=== PATIENT | female | born 1990 | race Caucasian/White ===

== ENCOUNTER 2022-11-07 21:02 | Emergency (ER) | payer MEDICARE, SELFPAY ==
[2022-11-07 21:08] VITALS: BP 141/97; PULSE 109; RESP 18; TEMP 36.6; O2SAT 98; BMI 32.5
--- NOTE | 2022-11-07 21:33 | ED_ITS ---
HPI - General Adult General Chief complaint: Chest Pain Stated complaint: Chest pain since this morning Time Seen by Provider: 11/07/22 21:16 Source: patient Mode of arrival: ambulatory Limitations: no limitations History of Present Illness HPI narrative: 32-year-old female coming in today complaining of chest pain that started when she woke up this morning. Pain is located in the right upper chest and does not radiate. Sitting still makes it better. Moving or taking deep breaths makes it worse. [place] 5 [address] ride and drove back yesterday. She is on oral control. She feels short of breath with activity. She denies nausea, vomiting or diaphoresis. She is not dizzy or lightheaded. She has been drinking alcohol this past week. Her past medical history is significant for idiopathic hypersomnolence, bipolar disorder, ADHD, acne. She is on armodafinil, Vraylar, Adderall, Xywav, Accutane, and spironolactone. She is sexually active but takes monthly test secondary to Accutane. Denies any recent surgeries. Related Data Home Medications Medication Instructions Recorded Confirmed armodafinil 250 mg tablet 250 mg PO QAM 11/07/22 11/07/22 cariprazine 6 mg capsule (Vraylar) 6 mg PO DAILY 11/07/22 11/07/22 dextroamphetamine-amphetamine 10 10 mg PO QID 11/07/22 11/07/22 mg tablet (Adderall) dextroamphetamine-amphetamine ER 30 mg PO DAILY 11/07/22 11/07/22 30 mg 24hr capsule,extend release (Adderall XR) sodium, calcium, magnesium, 4.5 g PO HS 11/07/22 11/07/22 potassium oxybates 0.5 gram/mL oral soln (Xywav) spironolactone 100 mg tablet 100 mg PO DAILY 11/07/22 11/07/22 Allergies Allergy/AdvReac Type Severity Reaction Status Date / Time amoxicillin AdvReac Verified 11/07/22 21:13 minocycline AdvReac Verified 11/07/22 21:13 Sulfa (Sulfonamide AdvReac Verified 11/07/22 21:13 Antibiotics) sulfamethoxazole AdvReac Verified 11/07/22 21:13 [From Bactrim] tramadol AdvReac Verified 11/07/22 21:13 trimethoprim [From Bactrim] AdvReac Verified 11/07/22 21:13 Review of Systems Status of ROS: Reports: 10 or more systems reviewed and unremarkable except as noted in History and below [facility] Medical History (Updated 11/07/22 @ 22:45 by Mariel Arenas MD) Bipolar disorder ?F31.9 - Bipolar disorder, unspecified (ICD-10) Idiopathic insomnia ?F51.01 - Primary insomnia (ICD-10) Acne ?L70.9 - Acne, unspecified (ICD-10) Social History Do you use any of these nicotine containing products: Vaping Products How often do you have a drink containing alcohol: never AUDIT-C Alcohol total score: 0 Non-prescribed substance use: denies use Exam Narrative: Exam Narrative: Overweight, well-developed patient in no acute distress. Alert and oriented. Answers questions appropriately. Mood and affect are appropriate. Thoughts are goal oriented and rational. No tangential or magical thinking noted. Patient speaks in full sentences without needing to catch her breath. Has scattered acne throughout the body. Has multiple tattoos. HEENT: Normocephalic atraumatic. Pupils are equally round reactive to light. Extraocular muscles are intact. Conjunctivae are moist without any icterus noted. Moist mucous membranes. Posterior pharynx is normal. Neck is soft without any lymphadenopathy or thyromegaly. No masses are appreciated. Cardiovascular: Heart is regular rate and rhythm S1 and S2 are present without any murmurs. Lungs: Clear to auscultation bilaterally no wheezes rhonchi or rales are appreciated. Patient takes deep breaths without any discomfort. I cannot reproduce her chest pain with palpation. Abdomen: Soft and nontender nondistended with normal bowel sounds. Extremities: Bilateral lower extremities are without edema. Skin: Well perfused without any obvious rashes. Const: Vital Signs, click to edit/add: Vital Signs - 24 hr 11/07/22 21:08 11/07/22 21:41 11/07/22 22:01 Temperature 97.9 F Pulse Rate 88 Pulse Rate [Left P ulse Oximeter] 109 H Respiratory Rate 18 16 Blood Pressure 132/86 Blood Pressure [Ri ght Upper Arm] 141/97 H Pulse Oximetry 98 98 98 Oxygen Delivery Me thod Room Air 11/07/22 22:21 Temperature Pulse Rate 87 Pulse Rate [Left P ulse Oximeter] Respiratory Rate 16 Blood Pressure 131/90 H Blood Pressure [Ri ght Upper Arm] Pulse Oximetry 98 Oxygen Delivery Me thod Course Course Hospital Course: EKG, read by me, shows normal sinus rhythm with a pulse of 100. Given that the patient was tachycardic an IV was established and fluids were started. After receiving a L of normal saline patient's pulse did come down into the 80s. Her lab work was entirely unremarkable including a negative troponin and D- dimer. Chest x-ray, read by me, does not show any acute pathology. Vital Signs Vital signs: Initial Vital Signs Temperature 97.9 F 11/07/22 21:08 Temperature Source Temporal Artery Scan 11/07/22 21:08 Pulse Rate 109 H 11/07/22 21:08 Respiratory Rate 18 11/07/22 21:08 Blood Pressure 141/97 H 11/07/22 21:08 Blood Pressure Mean 111 H 11/07/22 21:08 Blood Pressure Position Sitting 11/07/22 21:08 Pulse Oximetry 98 11/07/22 21:08 Oxygen Delivery Method Room Air 11/07/22 21:08 Vital Signs Temperature 97.9 F 11/07/22 21:08 Pulse Rate 109 H 11/07/22 21:08 Respiratory Rate 18 11/07/22 21:08 Blood Pressure 141/97 H 11/07/22 21:08 Pulse Oximetry 98 11/07/22 21:08 Oxygen Delivery Method Room Air 11/07/22 21:08 Temperature 97.9 F 11/07/22 21:08 Pulse Rate 87 11/07/22 22:21 Respiratory Rate 16 11/07/22 22:21 Blood Pressure 131/90 H 11/07/22 22:21 Pulse Oximetry 98 11/07/22 22:21 Oxygen Delivery Method Room Air 11/07/22 21:08 Medical Decision Making MDM Narrative Medical decision making narrative: 32-year-old female with atypical chest pain of unclear etiology. Differential diagnoses includes PE, pneumothorax, pneumonia you, chest wall pain, musculoskeletal discomfort, and less likely, cardiovascular disease. While these differential diagnoses were considered, no evidence was found to support any of them. At this time I recommend symptomatic management with over -the-counter NSAIDs or Tylenol. Follow up with primary care as needed or return to the ER if symptoms are getting worse. Patient was in agreement with everything we discussed and had no other questions. Lab Data Lab results reviewed: Yes I reviewed the patient's lab results Labs: Lab Results 11/07/22 11/07/22 11/07/22 Range/Units 21:30 21:35 21:38 WBC 10.89 (4.50-11.00) K/uL RBC 4.58 (4.00-5.20) m/uL Hgb 13.7 (12.0-16.0) gm/dL Hct 42.5 (33.0-51.0) % MCV 93 (80-100) fL MCH 30 (26-34) pg MCHC 32 (32-36) gm/dL RDW Coeff of Kimberlee 13.3 (11.5-15.5) % Plt Count 377 (140-440) K/uL Neut % (Auto) 54.5 (42.0-72.0) % Lymph % (Auto) 35.3 (20-44) % Clay % (Auto) 8.5 (0.0-11.0) % Eos % (Auto) 1.1 (0.0-7.0) % Baso % (Auto) 0.4 (0.0-3.0) % Neut # (Auto) 5.94 (1.7-7.0) K/uL Lymph # (Auto) 3.84 H (0.90-2.90) K/uL Clay # (Auto) 0.90 (0.00-0.90) K/UL Eos # (Auto) 0.12 (0.00-0.50) K/uL Baso # (Auto) 0.04 (0.00-0.30) K/uL Abs Immat Gran (auto) 0.02 (0.00-0.30) K/uL Imm/Tot Granulo (auto) 0.2 % ESR 3 (2-20) mm/hr D-Dimer Quant (PE/DVT) < 0.27 (0.00-0.50) ug/ml Sodium 136 (135-149) mmol/L Potassium 3.7 (3.6-5.1) mmol/L Chloride 100 (96-114) mmol/L Carbon Dioxide 29 (20-32) mmol/L BUN 12 (5-24) mg/dL Creatinine 0.8 (0.5-1.5) mg/dL Estimated Creat Clear 106.48 Estimated GFR 101 ml/min Glucose 102 (60-115) mg/dL Lactate 1.3 (0.5-1.9) mmol/L Calcium 9.4 (8.4-10.6) mg/dL Total Bilirubin 0.2 (0.1-1.5) mg/dL Direct Bilirubin 0.1 (0.0-0.5) mg/dL AST 28 (12-35) U/L ALT 28 (4-35) U/L Alkaline Phosphatase 69 (40-150) U/L Troponin I < 0.01 L (0.01-0.04) ng/mL C-Reactive Protein 1.1 H (0.5-1.0) mg/dL Total Protein 7.3 (6.0-8.3) g/dL Albumin 4.3 (3.3-5.0) g/dL Lipase 53 (23-300) U/L Urine HCG, Qual Negative (Negative) POC Troponin I 0.00 L (0.01-0.04) ng/ml Imaging Data Chest x-ray: Attestation: I have reviewed the pertinent imaging results. Radiologist's impression: Chest 2 views. COMPARISON: None. FINDINGS: Cardiovascular and mediastinum: Heart size and vasculature are normal in caliber and appearance. Lungs and pleural spaces: Lungs are clear. No sign of infiltrate or mass. No sign of pleural effusion. No pneumothorax. Bones and soft tissues: No significant findings. IMPRESSION: No acute or significant findings. ECG Data Attestation: I personally reviewed and interpreted this ECG as follows: Discharge Plan Discharge Clinical Impression: Atypical chest pain Patient Disposition: Home, Self-Care Condition: Stable Additional Instructions: Your workup did not find any life-threatening causes for your chest pain today. Potential causes do include musculoskeletal discomfort. At this time, I recommend taking Tylenol as needed for discomfort. Follow-up with your primary care provider as needed. Return to the ER if your symptoms are getting worse. Prescriptions: No Action dextroamphetamine-amphetamine [Adderall] 10 mg tablet 10 mg PO QID Rx Instructions: administer doses at least 4-6 hours apart dextroamphetamine-amphetamine [Adderall XR] 30 mg capsule,extended release 24hr 30 mg PO DAILY armodafinil 250 mg tablet 250 mg PO QAM spironolactone 100 mg tablet 100 mg PO DAILY Xywav 0.5 gram/mL solution 4.5 g PO HS Vraylar 6 mg capsule 6 mg PO DAILY Stand Alone Forms: [facility] Info Instructions
[2022-11-07] MEDS: 0.9 % SODIUM CHLORIDE 1000 ml 1,000 ML IV (21:40)
[2022-11-07 21:41] VITALS: O2SAT 98
[2022-11-07 21:41] LABS: Lactate* 1.3 mmol/L (0.5-1.9)
[2022-11-07 21:43] LABS: Basophils Absolute Auto 0.04 K/uL (0.00-0.30); Basophils Percent Auto 0.4 % (0.0-3.0); Eosinophils Absolute Auto 0.12 K/uL (0.00-0.50); Eosinophils Percent Auto 1.1 % (0.0-7.0); Hematocrit 42.5 % (33.0-51.0); Hemoglobin* 13.7 gm/dL (12.0-16.0); Immature Granulocytes Abs Auto 0.02 K/uL (0.00-0.30); Immature Granulocytes Pct Auto 0.2 %; Lymphocytes Absolute Auto 3.84 K/uL (0.90-2.90); Lymphocytes Percent Auto 35.3 % (20-44); Mean Corpuscular HGB Conc 32 gm/dL (32-36); Mean Corpuscular Hemoglobin 30 pg (26-34); Mean Corpuscular Volume 93 fL (80-100); Monocytes Percent Auto 8.5 % (0.0-11.0); Neutrophils Absolute Auto 5.94 K/uL (1.7-7.0); Neutrophils Percent Auto 54.5 % (42.0-72.0); Platelet Count* 377 K/uL (140-440); RDW Coefficient of Variation % 13.3 % (11.5-15.5); Red Blood Count 4.58 m/uL (4.00-5.20); White Blood Count* 10.89 K/uL (4.50-11.00)
[2022-11-07 21:46] LABS: Slide Review Reflex No
[2022-11-07 21:46] LABS: Ur HCG Qualitative* Negative (Negative)
[2022-11-07 21:57] LABS: Albumin* 4.3 g/dL (3.3-5.0); Chloride* 100 mmol/L (96-114)
[2022-11-07 21:58] LABS: Potassium* 3.7 mmol/L (3.6-5.1); Sodium* 136 mmol/L (135-149)
[2022-11-07 22:00] LABS: Creatinine* 0.8 mg/dL (0.5-1.5); Est. Creatinine Clearance* 106.48; Estimated Glomerular Filt Rate 101 ml/min
[2022-11-07 22:01] VITALS: BP 132/86; PULSE 88; RESP 16; O2SAT 98
[2022-11-07 22:01] LABS: Alanine Aminotransferase* 28 U/L (4-35); Alkaline Phosphatase* 69 U/L (40-150); Aspartate Amino Transferase* 28 U/L (12-35); Bilirubin Direct* 0.1 mg/dL (0.0-0.5); Bilirubin Total* 0.2 mg/dL (0.1-1.5); Blood Urea Nitrogen* 12 mg/dL (5-24); Calcium* 9.4 mg/dL (8.4-10.6); Carbon Dioxide* 29 mmol/L (20-32); Glucose* 102 mg/dL (60-115); Lipase* 53 U/L (23-300); Total Protein* 7.3 g/dL (6.0-8.3)
[2022-11-07 22:04] LABS: C Reactive Protein* 1.1 mg/dL (0.5-1.0)
[2022-11-07 22:19] LABS: D Dimer Quantitative* < 0.27 ug/ml (0.00-0.50); Troponin I* < 0.01 ng/mL (0.01-0.04)
[2022-11-07 22:21] VITALS: BP 131/90; PULSE 87; RESP 16; O2SAT 98
--- NOTE | 2022-11-07 22:21 | CRLHL7_ITS ---
For Patients: As a result of the Century Cures Act, medical imaging exams and procedure reports are released immediately into your electronic medical record. You may view this report before your referring provider. If you have questions, please contact your health care provider. INDICATION: [id number]. TECHNIQUE: Chest 2 views. COMPARISON: None. FINDINGS: Cardiovascular and mediastinum: Heart size and vasculature are normal in caliber and appearance. Lungs and pleural spaces: Lungs are clear. No sign of infiltrate or mass. No sign of pleural effusion. No pneumothorax. Bones and soft tissues: No significant findings. IMPRESSION: No acute or significant findings. Dictated by Amador Marquez MD @ 11/07/2022 10:59:34 PM (Electronically Signed)
[2022-11-07 22:41] VITALS: BP 127/83
[2022-11-07 22:44] LABS: Erythrocyte SedimentationRate* 3 mm/hr (2-20)
[2022-11-07 23:13] VITALS: BP 141/97; PULSE 84; RESP 16; TEMP 36.9
== END 2022-11-07 23:13 | disposition home or self-care (01) ==
PROVIDERS: Emergency Provider Family Medicine
DX: R07.9 Chest pain, unspecified (principal)
CPT/HCPCS: 36415; 71046; 80048; 80076; 81025; 83605; 83690; 84484; 85025; 85379; 85651; 86140; 93005; 94761; 99284; J7030